=== PATIENT | male | born 1975 | race Caucasian/White ===

== ENCOUNTER → 2021-05-20 09:51 | Outpatient (BNVA) | payer MEDICAID, SELFPAY | PROVIDERS: PCP Nurse Practitioner Family; Visit Provider Internal Medicine Cardiovascular Disease | DX: R07.9 Chest pain, unspecified (principal); R06.02 Shortness of breath; E78.5 Hyperlipidemia, unspecified; I12.9 Hypertensive chronic kidney disease with stage 1 through stage 4 chronic kidney disease, or unspecified chronic kidney disease; N18.9 Chronic kidney disease, unspecified; G47.33 Obstructive sleep apnea (adult) (pediatric); J44.9 Chronic obstructive pulmonary disease, unspecified; F12.90 Cannabis use, unspecified, uncomplicated; F17.210 Nicotine dependence, cigarettes, uncomplicated | CPT/HCPCS: 99204 ==

== ENCOUNTER → 2021-06-18 14:01 | Outpatient (BNVA) | payer MEDICAID, SELFPAY | PROVIDERS: PCP Nurse Practitioner Family; Referring Provider Nurse Practitioner Family; Visit Provider Podiatrist Foot & Ankle Surgery | DX: Q82.8 Other specified congenital malformations of skin (principal); M79.671 Pain in right foot; M79.672 Pain in left foot; F17.210 Nicotine dependence, cigarettes, uncomplicated | CPT/HCPCS: 17110; 73630; 99203 ==

== ENCOUNTER → 2021-07-10 10:30 | Outpatient (BNVA) | payer MEDICAID, SELFPAY | PROVIDERS: PCP Nurse Practitioner Family; Visit Provider Podiatrist Foot & Ankle Surgery | DX: Q82.8 Other specified congenital malformations of skin (principal); B07.8 Other viral warts; B35.3 Tinea pedis; M79.671 Pain in right foot; M79.672 Pain in left foot | CPT/HCPCS: 17110 ==

== ENCOUNTER → 2021-08-01 13:28 | Outpatient (BNVA) | payer MEDICAID, SELFPAY | PROVIDERS: PCP Nurse Practitioner Family; Visit Provider Podiatrist Foot & Ankle Surgery | DX: Q82.8 Other specified congenital malformations of skin (principal); B07.8 Other viral warts; B35.3 Tinea pedis; M79.671 Pain in right foot; M79.672 Pain in left foot | CPT/HCPCS: 17110 ==

== ENCOUNTER → 2021-08-21 15:53 | Outpatient (BNVA) | payer MEDICAID, SELFPAY | PROVIDERS: PCP Nurse Practitioner Family; Visit Provider Podiatrist Foot & Ankle Surgery | DX: Q82.8 Other specified congenital malformations of skin (principal); B07.8 Other viral warts; B35.3 Tinea pedis; M79.672 Pain in left foot; M79.671 Pain in right foot | CPT/HCPCS: 17110 ==

== ENCOUNTER → 2021-08-27 13:45 | Outpatient (BNVA) | payer MEDICAID, SELFPAY | PROVIDERS: PCP Nurse Practitioner Family; Visit Provider Nurse Practitioner Family | DX: R55 Syncope and collapse (principal); R07.9 Chest pain, unspecified; F17.210 Nicotine dependence, cigarettes, uncomplicated | CPT/HCPCS: 99213; 99214 ==

== ENCOUNTER 2021-09-09 12:18 | Outpatient (CLI) | payer MEDICAID, SELFPAY ==
--- NOTE | 2021-09-09 12:00 | USCV_ITS ---
CharliehilaryTrevor Age: 45 Gender: M : 1975 Exam Date: 09/09/2021 12:29 Ordering Phys: Veda Veloz MD ([email or web address]) Technologist: KIT [place] [facility] [place]: Shortness of breath BP: / HR: 66 Rhythm: Sinus Technical Quality: Adequate MEASUREMENTS (Male / Female) Normal Values 2D ECHO LV Diastolic Diameter PLAX 4.1 cm 4.2 - 5.9 / 3.9 - 5.3 cm LV Systolic Diameter PLAX 2.5 cm LV Chamber Size 4.7 cm IVS Diastolic Thickness 1.0 cm 0.6 - 1.0 / 0.6 - 0.9 cm IVS Systolic Thickness 1.8 cm LVPW Diastolic Thickness 1.6 cm 0.6 - 1.0 / 0.6 - 0.9 cm LVPW Systolic Thickness 1.1 cm RV Chamber Size 3.5 cm LVOT Diameter 2.0 cm LV Ejection Fraction 2D Teich 70.5 % LV Ejection Fraction MOD 2C 53.2 % LV Ejection Fraction 2C AL 54.4 % LA Diameter 3.7 cm LA Width 3.4 cm LA Height 4.7 cm RA Width 3.3 cm RA Height 4.2 cm Aorta at Sinotubular Diameter 2.5 cm IVC Diameter 2.0 cm M-MODE Aortic Annulus Diameter 2.9 cm LA Ao Ratio MM 1.5 MV E Point Septal Separation 0.3 cm DOPPLER AV Peak Velocity 164.0 cm/s LVOT Peak Velocity 121.0 cm/s AV Area Cont Eq vti 2.5 cm squared AV Area Cont Eq pk 2.4 cm squared MV Area PHT 3.4 cm squared Mitral E to A Ratio 1.0 MV E' Velocity 55.0 cm/s Mitral E to MV E' Ratio 9.2 Mitral E to LV E' Lateral Ratio 8.0 Mitral E to LV E' Septal Ratio 10.9 TR Peak Velocity 127.1 cm/s TR Peak Gradient 6.5 mmHg TR Mean Velocity 84.0 cm/s TR Mean Gradient 3.2 mmHg TR Velocity Time Integral 28.0 cm TV Peak E Velocity 63.0 cm/s Right Atrial Pressure 3.0 mmHg Pulmonary Artery Systolic Pressu 9.5 mmHg PV Peak Velocity 71.0 cm/s RV Acceleration Time 0.1 s RV Ejection Time 0.3 s RV AcT/ET 0.3 FINDINGS Left Ventricle Normal left ventricular size, systolic function and wall thickness, with no regional wall motion abnormalities. Left ventricular ejection fraction is estimated at 60 %. Normal diastolic function. Right Ventricle Normal right ventricular size and systolic function. Right ventricular systolic pressure 9.5 mmHg. Right Atrium Normal right atrial size. Left Atrium Normal left atrial size. Mitral Valve Mild mitral annular calcification. No mitral valve stenosis. Trace mitral valve regurgitation. Aortic Valve Structurally normal trileaflet aortic valve. No aortic valve stenosis. No aortic valve regurgitation. Tricuspid Valve Structurally normal tricuspid valve. Trace tricuspid valve regurgitation. Pulmonic Valve Pulmonic valve not well visualized. Pericardium No pericardial effusion. Aorta Normal size aortic root. IVC Normal IVC dimension with >50% respiratory change of the inferior vena cava. CONCLUSIONS 1. Normal left ventricular size, systolic function and wall thickness, with no regional wall motion abnormalities. Left ventricular ejection fraction is estimated at 60 %. Normal diastolic function. 2. Normal right ventricular size and systolic function. 3. No significant valvular abnormality. 4. No prior similar studies to compare. Veda Veloz MD (Electronically Signed) Final Date: 12 September 2021 13:54 S
[2021-09-09 13:53] VITALS: BMI 37.5
--- NOTE | 2021-09-09 13:56 | ECG_ITS ---
[facility] Test Date: 2021-09-09 Pat Name: Trevor Winters Department: Room: Gender: Male Front Desk Auxiliary: : 1975 Requested By: Veda Veloz Order Number: [id number] Shamir MD: Veda Veloz M.D. Interpretive Statements NAME OF STUDY: TREADMILL STRESS TEST INDICATION: Chest Pain Baseline blood pressure of 134/75 mm Hg, heart rate of 71 beats per minute and oxygen saturation of 92%. EKG showed normal sinus rhythm, rightward axis. Normal ST-Ts. The patient exercised for 7 minutes 13 seconds on a standard Gautam protocol. Patient attained a maximum heart rate of 109 beats per minute(61% of the maximum predicted heart rate) with a blood pressure at the peak exercise of 170/76 mm Hg. The EKG at the peak exercise revealed sinus tachycardia with no significant ST-T wave changes. Patient did not have any chest pain or any significant arrhythmis with the exercise. The study was terminated due to maximal effort and exertional shortness of breath. During the recovery phase, there were no new changes. Blood pressure at the end of the recovery phase was 159/81 mm Hg with a heart rate of 74 beats per minute and oxygen saturation of 94%. CONCLUSION: 1. Normal EKG response to treadmill exercise with submaximal stress. Patient exercised for 7 minutes 13 seconds and reached 61% of maximum predicted heart rate. 2. No exercise-induced chest pain or cardiac arrhythmia. 3. Good exercise tolerance, attained a maximum of 10.2 METs. Maximum VO2 of 35.7 mL/kg/min. 4. Baseline normal blood pressure with normal response to exercise. Electronically Signed On 09-15-2021 14:06:59 CDT by Veda Veloz M.D. [email or web address].[email or web address]/store/[id number]
[2021-09-09 14:19] VITALS: BP 148/91; PULSE 78
== END 2021-09-09 12:19 | disposition home or self-care (01) ==
PROVIDERS: PCP Nurse Practitioner Family; Visit Provider Internal Medicine Cardiovascular Disease
DX: R07.9 Chest pain, unspecified (principal); R06.02 Shortness of breath
CPT/HCPCS: 93017; 93306

== ENCOUNTER 2022-02-18 08:04 | Outpatient (CLI) | payer MEDICAID, SELFPAY ==
--- NOTE | 2022-02-18 | ECG_ITS ---
[facility] Test Date: 2022-02-18 Pat Name: Trevor Winters Department: Room: Gender: Male Director Physical: : 1975 Requested By: Veda Veloz Order Number: [id number] Shamir MD: Veda Veloz M.D. Interpretive Statements NAME OF STUDY: LEXISCAN SESTAMIBI STRESS TEST INDICATION: Chest pain, Exertional SOB PROCEDURE: At the baseline, the blood pressure was 142/87 mm Hg with a heart rate of 62 bpm. The electrocardiogram showed sinus rhythm, normal ST and T's. ??? The Lexiscan was infused over a period of 20 seconds. A total of 0.4 milligrams of Lexiscan was infused. The stress phase was continued for a total of 5 minutes. Heart rate at the end of the stress phase was 82 bpm with a blood pressure of 140/72 mm Hg. The EKG at the peak infusion revealed no significant ST-T wave changes. ??? Sestamibi was injected 20 seconds after the Lexiscan infusion. ??? Blood pressure at the end of the recovery phase was 128/76 mm Hg with a heart rate of 80 beats per minute. ??? CONCLUSION: 1. Normal EKG response to LexiScan infusion. 2. No LexiScan induced chest pain or cardiac arrhythmia. 3. Normal blood pressure and heart rate response. 4. Sestamibi/sestamibi perfusion scan pending; see separate report. Electronically Signed On 03-01-2022 10:48:47 MACHINE CONTAINER WASHER by Veda Veloz M.D. [email or web address] [facility].[employer]/store/OM/[id number]
[2022-02-18 08:13] VITALS: BMI 37.5
--- NOTE | 2022-02-18 09:02 | NMCV_ITS ---
NM joe perf SPECT r/s* [id number] Trevor Winters Age: 46 Gender: M : 1975 Exam Date: 02/18/2022 09:02 Ordering Phys: Veda Veloz MD ([email or web address]) Technologist: ANNABEL Beth Exam Location: [facility] Indications: CHEST PAIN STRESS TEST Please see separate stress test report in [facility] for full findings IMAGE PROTOCOL Rest/Stress 1 Lexiscan Day Radiopharmaceutical Dose (mCi) Administration Site Administered by Rest: Tc-99m 10.8 IV ANNABEL Bolanos Sestamibi Stress:Tc-99m 32.4 IV ANNABEL Bolanos Sestamibi Rest: 18-Feb-2022 60 Discovery 630 Stress: 18-Feb-2022 30 Discovery 630 0.4mg Lexiscan. Images obtained in supine and prone position. SPECT RESULTS Technical Quality: Excellent Raw Data Analysis: Normal Image Corrections: No attenuation or motion correction applied Summed Stress Score: 1 Summed Rest Score: 1 Summed Difference Score: 1 PERFUSION FINDINGS SPECT images demonstrate homogeneous tracer distribution throughout the myocardium. FUNCTIONAL RESULTS (calculated via Gated SPECT) Stress Image LV EF (%): 54 Stress EDV (mL):111 TID: 1.09 Stress ESV (mL):51 FUNCTIONAL FINDINGS: The left ventricle is normal in size. Transient Ischemia Dilatation of 1.1. The left ventricular ejection fraction is low normal with a value of 54%. There is normal left ventricular wall thickening. IMPRESSIONS 1. Myocardial perfusion imaging is normal. 2. Overall left ventricular systolic function is low normal without regional wall motion abnormalities, LVEF=54%. 3. EKG portion of the study will be reported separately. 4. Scan indicates low risk for cardiac events. Veda Veloz MD (Electronically Signed) Final Date: 21 February 2022 20:18 S
[2022-02-18 10:39] VITALS: BP 128/76; PULSE 81
[2022-02-18] MEDS: regadenoson 0.4 Mg/5 ml Syringe IVP (10:42)
== END 2022-02-18 08:05 | disposition home or self-care (01) ==
LOC: CDL 08:06
PROVIDERS: PCP Nurse Practitioner Family; Visit Provider Internal Medicine Cardiovascular Disease
DX: R07.9 Chest pain, unspecified (principal); R06.02 Shortness of breath
CPT/HCPCS: 36415; 78452; 93017; 96374; A9500; J2785

== ENCOUNTER 2022-03-16 07:59 | Outpatient (CLI) | payer MEDICAID, SELFPAY ==
--- NOTE | 2022-03-16 08:00 | CT_ITS ---
WS: [id number] CT CALCIUM SCORE REASON FOR VISIT: Family h/o premature CAD; Coronary artery disease risk assessment COMPARISON: None TECHNIQUE: Noncontrast coronary CT in combination with quantitative analysis performed on a separate workstation were used to determine CACS (Agatston score) TOTAL EXAM DOSE: 139.90 mGy.cm ECG GATING: Prospective SCAN RANGE: Pulmonary artery bifurcation to Inferior aspect of heart COMPLICATIONS: None FINDINGS: Technical Quality/Examination Quality: Good Limitaiton: None OVERALL SCORES Total calcium score: 5517 Percentile: 90-100 % (this means that 90% of people in this age and gender had less calcium than was detected on this study). ARTERY SCORES Left main coronary artery: 72 Left anterior descending artery: 2270 Left circumflex artery: Right coronary artery: 2782 OTHER FINDINGS: Mediastinum: Normal. Thoracic aorta: Moderate calcification ascending aorta and at the arch. Lungs: Emphysema. MINIMAL: 1-10 MILD: 11-100 MODERATE: 101-400 SEVERE:>400 CT/CT heart w calcium score 59473 IMPRESSION: Total calcium score 5517. GRADING OF CORONARY ARTERY DISEASE (BASED ON TOTAL CALCIUM SCORE) NO EVIDENCE OF CAD: 0 calcium score
== END 2022-03-16 08:00 | disposition home or self-care (01) ==
PROVIDERS: PCP Nurse Practitioner Family; Visit Provider Internal Medicine Cardiovascular Disease
DX: Z13.6 Encounter for screening for cardiovascular disorders (principal); Z82.49 Family history of ischemic heart disease and other diseases of the circulatory system; I25.10 Atherosclerotic heart disease of native coronary artery without angina pectoris
CPT/HCPCS: 75571

== ENCOUNTER 2022-04-02 09:09 | Outpatient (CLI) | payer MEDICAID, SELFPAY ==
[2022-04-01 13:42] VITALS: BMI 37.3
[2022-04-02] VITALS (11 sets, daily range): BP systolic 119–164; BP diastolic 82–102; PULSE 61–72; RESP 14–20; TEMP 36.6–36.8; O2SAT 96–100
[2022-04-02 09:37] LABS: Basophils % 0.3 %; Eosinophils # 0.3 10^3/uL (0.0-0.8); Eosinophils % 2.3 %; Hematocrit 47.4 % (42.0-52.0); Hemoglobin 15.9 g/dL (11.7-16.6); Lymphocytes # 1.4 10^3/uL (0.8-4.8); Lymphocytes % 11.6 %; Mean Corpuscular HGB Conc 33.5 g/dL (30.0-36.0); Mean Corpuscular Hemoglobin 28.5 pg (28.0-34.0); Mean Corpuscular Volume 85.1 fl (80-94); Mean Platelet Volume 9.2 fL (7.4-10.4); Monocytes # 0.6 10^3/uL (0.2-0.9); Monocytes % 4.8 %; Neutrophils # 9.65 10^3/uL (1.8-7.7); Neutrophils % 80.6 %; Nucleated Red Blood Cells % 0 %; Platelet Count 265 10^3/cmm (130-400); Red Blood Count 5.57 10^6/uL (4.1-5.3); Red Cell Distribution Width 13.2 % (12.1-15.1)
[2022-04-02 10:00] LABS: Anion Gap 16.2 (5-19); Blood Urea Nitrogen 11 mg/dL (6-20); Calcium 8.8 mg/dL (8.5-10.5); Carbon Dioxide 23 mmol/L (22-29); Chloride 103 mmol/L (98-107); Glomerular Filtration Rate 80.8 mL/min (90-130); Glucose 100 mg/dL (65-115); Osmolality Calculated 285 mOsm/kg (285-295); Potassium 4.2 mmol/L (3.5-5.1); Sodium 138 mmol/L (136-145)
--- NOTE | 2022-04-02 10:00 | XACV_ITS ---
Exam Room: 2 Ht: 170 cm Wt: 108 kg BSA: 2.31 m2 Gender: Male : 1975 Any Known Allergies: Other Exam Priority: Routine Procedure(s): Procedure Description: Diagnostic procedure Procedure Description: Left Heart Catheterization Procedure Description: Coronary Angiography Procedure Description: Pressure Wire Diagnostic Cath Status: Elective Diagnostic Findings * INDICATION: 46-year-old man with past medical history of smoking, hypertension, hyperlipidemia, COPD who is here for left heart cath with possible percutaneous coronary intervention as he has been having on and off chest discomfort, dyspnea on exertion. His stress test did not show significant ischemia however he had cardiac CT with very high calcium score. Given his symptoms, he has been referred for left heart cath by our television repairer Dr. Veloz. * Left Main has no significant disease. * RCA is diffusely diseased vessel. Proximal Right Coronary Artery: severe 90% stenosis, KINGS: 3 flow. * Second Obtuse Marginal Branch is a large sized vessel and has severe ostial 90% stenosis, KINGS: 3 flow. * Proximal Left Anterior Descending: moderate 50% stenosis, KINGS: 3 flow. * Mid Left Anterior Descending: obstructive 60% stenosis, KINGS: 3 flow. * Distal Circumflex: subtotal occlusion, KINGS: 3 flow. * Coronary angiography shows co-dominance. Interventional Findings * PROCEDURE DETAIL: We engaged left main artery with XB 3 guide catheter. IV heparin was administered to maintain ACT above 250 s. After normalization, we advanced IFR wire into distal LAD. Significantly abnormal IFR value of 0.8 was obtained. Pullback IFR of 0.78 also confirmed ischemia in LAD territory. Pullback showed diffuse disease from mid to proximal segment. Distal vessel target appears normal. iFR wire and guide catheter were removed. Patient left cath lab radiology technician in a stable condition. . Conclusions 1. Severe multivessel CAD. Ischemia in LAD confirmed with significantly low iFR values. Recommendations * We will refer patient to CT surgery for CABG evaluation. * Aggressive risk factor modification. * Outpatient cardiology follow up in 4 weeks. Interventional RX Recommendation: CABG Diagnostic RX Recommendation: CABG Anticoagulation: Heparin Pressures Phase:Rest AO : / ( -20 ) @ 10:57:00 AM 144 / 84 ( 111 ) @ 10:59:00 AM 143 / 83 ( 109 ) @ 10:59:00 AM 151 / 96 ( 121 ) @ 11:03:00 AM 131 / 76 ( 96 ) @ 11:07:00 AM 134 / 83 ( 108 ) @ 11:10:00 AM LV : 152 / 0 / 20 @ 10:58:00 AM 154 / 2 / 23 @ 10:59:00 AM Valves Phase:DefaultPhase AV : 11.0 @ 11:16:13 AM 11.0 @ 11:16:13 AM AV Mean Gradient: 14.0 @ 11:16:13 AM Clinical Evaluation EBL: 5mL-10mL Procedural Details Procedure Consent Obtained. Admit Source: Out Patient. Pre-Procedure Time Out. Identified patient by full name and date of as verbalized by the patient/guarantor. Does the consent match the physician's order: Yes. Accurate & Complete Informed Consent: Yes. Inpatient/Outpatient History & Physical on Chart: Yes. If H&P is completed, is and addenduem needed: Yes; If yes, is the addendum complete: Yes. Visualize and Verify Site with Patient/Guarantor: N/A. Relevant Radiology Images available: Yes. The risks, benefits, and alternatives of sedation and/or procedure were discussed by physician. The patient agrees to continue. Procedure started. Corry Silva RN was relieved by Lynne Lopez RN, [facility] as monitoring person. [facility] Clinical Fraility Score: 3: Managing Well. [employer] Indications: Abnormal cardiac CT, Dyspnea on exertion. Chest Pain Symptom Assessment: Typical Angina Symptoms. Correct patient, site and procedure confirmed by cath team. Current diagnosis: Abnormal cardiac CT, Dyspnea on exertion. PERRLA. Strong, equal hand casket inspector bilaterally. Lungs clear x 5 lobes. IV Site on Arrival: 20 gauge in the right anticubital. IV Fluids: 0.9% NaCl at KVO. 0 mL infused prior to cath lab radiology technician. Pre Procedural Pulses: bilateral dorsalis pedis was 3+. Pre Procedural Pulses: bilateral posterior tibial was 3+. Pre Procedural Pulses: right radial was Absent. Pre Procedural Pulses: bilateral radial was 3+. Oxygen started at 2liters/min via nasal canula. right groin was prepped with chloroprep then draped in the usual sterile fashion. right radial was prepped with chloroprep then draped in the usual sterile fashion. Physician notified. Baseline sample Acquired. HR: 69 BPM. Equipment: 6F - Radial. Cardiac Cath Pack. ACIST Manifold Kit Model BT 2000. Heparinized Saline (2 units/mL), 1000 mL bag. Physician arrived. Patient's family in CPRU. Dr Chavarria will update at the completion of the procedure. Physician scrubbed in. Immediate Pre-Procedure Time Out. Correct Patient: Yes; Correct Procedure: Yes; Correct Site: Yes; Dried Flammable Prep: Yes; Blood Products Available: N/A;. Lidocaine 1% infiltrated to the right radial. Arterial access obtained. A 5 tajik TIG catheter in over the exchange J wire. Multiple views taken of left coronary artery. Catheter redirected to the RCA. Multiple views taken of right coronary artery. Catheter redirected to the LV. EDP Sample taken: LV 152/-1,20; HR: 67 BPM; SpO2: 98%. Pullback taken: LV 154/2,23; AO 144/84(111); Mean: 14mmHg, Peak to Peak: 11mmHg, SEP: 14sec/min; HR: 68 BPM; SpO2: 98%. Catheter removed over the exchange wire. 6 tajik XB 3 guide catheter was inserted over the exchange wire. FFR guidewire was advanced through the guide catheter to lesion in the prox LAD. Normalization performed. iFR measurements obtained of the Prox LAD. iFR = 0.80 with a pull back of 0.78. Final cine of the Prox LAD performed. A TR Band was successful obtaining hemostatsis at the Right Radial artery insertion site. Dr. Chavarria scrubbed out. Hand injection of the radial artery performed. TR band placed. Hemostasis obtained. Post Procedure: Pulses reassessed and unchanged. PERRLA. Strong, equal hand casket inspector bilaterally. No VTE prophylaxis required. Medication's Wasted: Heparin = 2000 Units. Total IV fluids: 50 mL. PCI Indication: CAD (without ischemic symptoms). Post-op diagnosis: Severe multivessel disease. Complications: none. Estimated blood loss: 5mL-10mL. Responsiveness - Normal response to verbal stimuli; alert and oriented, PERRLA. Airway - Unaffected, no intervention required; spontaneous ventilation. Circulation: W/N/L, pulses unchanged. Nausea/Vomiting: No. Procedure completed. Patient transferred by wheelchair to CPRU. Vital chart was stopped. Access Site Site: Right Radial artery Sheath Size: 6 Fr Hemostasis Method: TR Band Hemostasis Success: Successful Procedure Medications Start: 10:44 AM Stop: 10:44 AM Medication: Versed Amount: 1 mg Route: I.V. Start: 10:44 AM Stop: 10:44 AM Medication: Fentanyl Amount: 50 mcg Route: I.V. Start: 10:49 AM Stop: 10:49 AM Medication: Versed Amount: 1 mg Route: I.V. Start: 10:51 AM Stop: 10:51 AM Medication: Fentanyl Amount: 25 mcg Route: I.V. Start: 10:52 AM Stop: 10:52 AM Medication: Heparin Amount: 5000 units Route: I.V. Start: 11:00 AM Stop: 11:00 AM Medication: Heparin Amount: 4000 units Route: I.V. Start: 11:01 AM Stop: 11:01 AM Medication: Fentanyl Amount: 25 mcg Route: I.V. Start: 11:03 AM Stop: 11:03 AM Medication: Versed Amount: 1 mg Route: I.V. Start: 11:07 AM Stop: 11:07 AM Medication: Versed Amount: 1 mg Route: I.V. I, the attending physician, have reviewed and verified all procedure medications. Yes, all medications given per verbal order History/Risk Factors Hypertension: Yes Dyslipidemia: Yes Peripheral Arterial Disease (PAD): No Myocardial Infarction (TN): No Obesity: Yes Renal Disease: No Tobacco Use: Current/Recent(w/in 1 year) Prior Interventions PCI: No CABG: No Valve Surgery: No Report Signatures Finalized by Sandro Chavarria MD on 04/05/2022 02:53 PM
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
== END 2022-04-02 16:30 | disposition home or self-care (01) ==
LOC: CCL 09:11 → CSU 14:18
PROVIDERS: PCP Nurse Practitioner Family; Visit Provider Internal Medicine
DX: I25.10 Atherosclerotic heart disease of native coronary artery without angina pectoris (principal); E78.5 Hyperlipidemia, unspecified; E66.9 Obesity, unspecified; Z68.37 Body mass index [BMI] 37.0-37.9, adult; J44.9 Chronic obstructive pulmonary disease, unspecified; F41.9 Anxiety disorder, unspecified; F32.A Depression, unspecified; I12.9 Hypertensive chronic kidney disease with stage 1 through stage 4 chronic kidney disease, or unspecified chronic kidney disease; N18.9 Chronic kidney disease, unspecified; G47.33 Obstructive sleep apnea (adult) (pediatric); F17.210 Nicotine dependence, cigarettes, uncomplicated
CPT/HCPCS: 36415; 80048; 85025; 93458; 93571; 96361; 96365; 99152; 99153; C1769; C1887; C1894; G0378; J1644; J2250; J3010; J3490; J7030; Q0163; Q9967

== ENCOUNTER → 2022-08-21 11:18 | Outpatient (BNVA) | payer MEDICAID, SELFPAY | PROVIDERS: PCP Nurse Practitioner Family; Visit Provider Internal Medicine Cardiovascular Disease | DX: I25.10 Atherosclerotic heart disease of native coronary artery without angina pectoris (principal); Z95.1 Presence of aortocoronary bypass graft; E78.5 Hyperlipidemia, unspecified; I12.9 Hypertensive chronic kidney disease with stage 1 through stage 4 chronic kidney disease, or unspecified chronic kidney disease; N18.9 Chronic kidney disease, unspecified; G47.33 Obstructive sleep apnea (adult) (pediatric); J44.9 Chronic obstructive pulmonary disease, unspecified; Z82.49 Family history of ischemic heart disease and other diseases of the circulatory system; F17.210 Nicotine dependence, cigarettes, uncomplicated; R94.31 Abnormal electrocardiogram [ECG] [EKG] | CPT/HCPCS: 93005 ==

== ENCOUNTER → 2022-11-18 09:13 | Outpatient (BNVA) | payer MEDICAID, SELFPAY | PROVIDERS: PCP Nurse Practitioner Family; Visit Provider Podiatrist Foot & Ankle Surgery | DX: Q82.8 Other specified congenital malformations of skin; G57.62 Lesion of plantar nerve, left lower limb | CPT/HCPCS: 73630 ==

== ENCOUNTER 2022-11-27 10:22 | Outpatient (CLI) | payer MEDICAID, SELFPAY ==
--- NOTE | 2022-11-27 10:15 | USCV_ITS ---
Trevor Winters Age: 47 Gender: M : 1975 Exam Date: 11/27/2022 10:36 Ordering Phys: Veda Veloz MD ([email or web address]) Technologist: TROY Exam Location: [facility] [place] Indication: CAD, SOB, ASHD BP: 120 / 78 HR: 69 Rhythm: Sinus Technical Quality: Suboptimal MEASUREMENTS (Male / Female) Normal Values 2D ECHO LV Diastolic Diameter PLAX 3.8 cm 4.2 - 5.9 / 3.9 - 5.3 cm LV Systolic Diameter PLAX 2.5 cm IVS Diastolic Thickness 1.5 cm 0.6 - 1.0 / 0.6 - 0.9 cm IVS Systolic Thickness 1.8 cm LVPW Diastolic Thickness 0.9 cm 0.6 - 1.0 / 0.6 - 0.9 cm LVPW Systolic Thickness 1.6 cm LVOT Diameter 2.2 cm LV Ejection Fraction 2D Teich 64.5 % LV Ejection Fraction MOD 2C 32.2 % LV Ejection Fraction 2C AL 33.6 % LA Diameter 3.8 cm LA Width 4.5 cm LA Height 5.3 cm RA Width 4.2 cm RA Height 4.2 cm Aorta at Sinotubular Diameter 3.0 cm IVC Diameter 1.9 cm M-MODE Aortic Annulus Diameter 3.2 cm LA Ao Ratio MM 1.3 MV E Point Septal Separation 0.3 cm DOPPLER AV Peak Velocity 158.0 cm/s LVOT Peak Velocity 108.0 cm/s AV Area Cont Eq vti 3.4 cm squared AV Area Cont Eq pk 2.6 cm squared MV Peak Velocity 93.0 cm/s MV Area PHT 3.7 cm squared Mitral E to A Ratio 1.1 MV E' Velocity 41.5 cm/s Mitral E to MV E' Ratio 7.7 Mitral E to LV E' Lateral Ratio 6.7 Mitral E to LV E' Septal Ratio 9.2 TR Peak Velocity 76.5 cm/s TR Peak Gradient 2.3 mmHg Right Atrial Pressure 5.0 mmHg Pulmonary Artery Systolic Pressu 7.3 mmHg PV Peak Velocity 112.0 cm/s RV Acceleration Time 0.1 s RV Ejection Time 0.3 s RV AcT/ET 0.4 FINDINGS Left Ventricle Normal left ventricular cavity size. Normal left ventricular systolic function. Left ventricular ejection fraction is estimated at 55 %. No diagnostic regional wall motion abnormalities. Abnormal (paradoxical) septal motion consistent with postoperative status. Right Ventricle Normal right ventricular size and systolic function. Right Atrium Normal right atrial size. Left Atrium Normal left atrial size. Mitral Valve Mild mitral annular calcification. No mitral valve stenosis. No mitral valve regurgitation. Aortic Valve Aortic valve not well visualized. No aortic valve stenosis. No aortic valve regurgitation. Tricuspid Valve Structurally normal tricuspid valve. Pulmonic Valve Pulmonic valve not well visualized. Pericardium No pericardial effusion. Aorta Normal size aortic root and proximal ascending aorta. IVC Normal IVC dimension with >50% respiratory change of the inferior vena cava. CONCLUSIONS 1. Normal left ventricular cavity size. Normal left ventricular systolic function. Left ventricular ejection fraction is estimated at 55 %. No diagnostic regional wall motion abnormalities. 2. When compared to study dated 09/29/2021, there may not have been any significant change. Veda Veloz MD (Electronically Signed) Final Date: 01 December 2022 09:11 S
== END 2022-11-27 10:23 | disposition home or self-care (01) ==
PROVIDERS: PCP Nurse Practitioner Family; Visit Provider Internal Medicine Cardiovascular Disease
DX: R06.02 Shortness of breath (principal); I10 Essential (primary) hypertension; I25.10 Atherosclerotic heart disease of native coronary artery without angina pectoris; I08.0 Rheumatic disorders of both mitral and aortic valves
CPT/HCPCS: 93306

== ENCOUNTER 2023-07-01 10:08 | Emergency (ER) | payer MEDICAID, SELFPAY ==
[2023-07-01 10:18] VITALS: BP 119/77; PULSE 89; RESP 17; TEMP 36.4; O2SAT 99; BMI 40.3
--- NOTE | 2023-07-01 13:34 | XR_ITS ---
WS: [id number] AP and lateral soft tissue views of the neck, 07/01/2023 Clinical Data: difficulty swallowing Comparison: None. Findings: There are small carotid bifurcation calcifications bilaterally. The hypopharynx shows no abnormalitie s. The anterior superior margin of C5 shows an osteophyte which may indent the hypopharynx. No prever tebral soft tissue swelling is seen. The proximal trachea is normal. There are midline sternotomy sut ures. XR/XR soft tissue neck [id number] Impression: 1. Small anterior superior C5 osteophyte which may indent the hypopharynx. 2. Small calcifications in the region of both carotid bifurcations.
[2023-07-01] MEDS: glucagon 1 mg/mL KIT 1 mL IM (13:45)
[2023-07-01] MEDS: lidocaine 2% viscous 15 ML, aluminum-mag hydrox-simethicon 30 ML, sucralfate oral liq 1 GM PO (13:45)
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
[2023-07-01 14:15] VITALS: BP 132/80; PULSE 71; RESP 16; O2SAT 98
--- NOTE | 2023-07-01 14:33 | PC.NURSE ---
Per Dr Shearer- Haroon to patient. Pt handling secretions without difficulties. Water to patient and he reports that he can't feel it right now. Swallows water without problems. No breathing difficulties. Pt reports that he has anxiety and does smoke marijuana for it. He is very anxious about something stuck in his throat. Tells me that he even stopped at [employer] this am for a sausage biscuit to see if that would push it down. No problems with food intake, but still felt like something was in his throat.
--- NOTE | 2023-07-01 14:48 | DCPLANNER ---
message sent to gen torres for er f/u
[2023-07-01 15:10] VITALS: BP 126/86; PULSE 76; RESP 17; O2SAT 97
== END 2023-07-01 15:13 | disposition home or self-care (01) ==
PROVIDERS: Emergency Provider Emergency Medicine; PCP Nurse Practitioner Family
DX: R13.10 Dysphagia, unspecified (principal); Z79.02 Long term (current) use of antithrombotics/antiplatelets; Z79.82 Long term (current) use of aspirin; F17.210 Nicotine dependence, cigarettes, uncomplicated; I25.10 Atherosclerotic heart disease of native coronary artery without angina pectoris; I12.9 Hypertensive chronic kidney disease with stage 1 through stage 4 chronic kidney disease, or unspecified chronic kidney disease; N18.9 Chronic kidney disease, unspecified; E78.5 Hyperlipidemia, unspecified; J44.9 Chronic obstructive pulmonary disease, unspecified; Z95.1 Presence of aortocoronary bypass graft
CPT/HCPCS: 70360; 96372; 99284; J1610